=== PATIENT | female | born 1935 | race Caucasian/White ===

== ENCOUNTER 2017-07-31 06:12 | Emergency (ER) | payer MEDICARE ==
[~2017-07-31] VITALS: Ht 152.4 cm; Wt 52.0 kg
[~2017-07-31 06:12] MED LIST: ACTO35TA PO; BP MEDICATION; LORTA5 PO; LOVA10TA PO
[2017-07-31 06:14] VITALS: BP 172/81; PULSE 100; RESP 16; TEMP 99.3; O2SAT 98
[2017-07-31] MEDS ORDERED: METO-309 PO (06:43)
[2017-07-31 06:44] VITALS: BP 152/81; PULSE 89; RESP 18; O2SAT 97
[2017-07-31] MEDS ORDERED: ACETAMINOPHEN 325 MG TAB PO ONE (07:15)
--- NOTE | 2017-07-31 07:24 | PD ---
HPI Chief Complaint: Chest Pain Time Seen by Provider: 07:00 Travel History International Travel<30 days: Yes Contact w/Intl Traveler<30days: Yes Name of Country Traveled to: [place] Traveled to known affect area: No History of Present Illness HPI Patient is a 81-year-old female who presents to emergency room from senior care for evaluation of chest wall pain. Patient reports that she was walking around the senior care in a lau and her flip-flops, reports that she tripped twice in her flip-flops and fell onto her chest wall. Reports that she thinks that she there was possibly water on the floor. Reports that she has never had an issue with tripping in the past when she has her normal shoes on. Patient reports that when she fell, she landed onto her nose as well as her chest wall. Patient reports that her bra which has a wire in it, dug into her chest, reports that this is where her pain is. Denies chest pain, reports rib pain under her bilateral chest. Denies shortness of breath. Reports that she is currently is not on any anticoagulants at this time. Reports only history of hypertension. Denies headache or dizziness, no other complaints. PFSH Past Medical History Cancer: No Cardiovascular Problems: Yes (HTN) High Cholesterol: Yes Diabetes: No Diminished Hearing: No Endocrine: No Genitourinary: No Hepatitis: No Hiatal Hernia: No Hypertension: Yes Immune Disorder: No Musculoskeletal: No Neurologic: No Psychiatric: No Reproductive: No Respiratory: No Immunizations Current: Yes Thyroid Disease: No Tetanus Vaccination: Unknown Past Surgical History Abdominal Surgery: No AICD: No Cardiac Surgery: No Section: Yes Ear Surgery: No Endocrine Surgery: No Eye Surgery: No Genitourinary Surgery: No Gynecologic Surgery: Yes Hysterectomy: Yes Joint Replacement: No Oral Surgery: No Pacemaker: No Thoracic Surgery: No Tonsillectomy: Yes Other Surgery: Yes Social History Alcohol Use: Yes (OCCASIONAL) Tobacco Use: No Substance Use: No Allergies-Medications (Allergen,Severity, Reaction): Coded Allergies: No Known Allergies (Verified , 07/31/17) Reported Meds & Prescriptions Reported Meds & Active Scripts Active Reported Lopressor (Metoprolol Tartrate) 50 Mg Tab 0 PO DAILY Review of Systems General / Constitutional: No: Fever Eyes: No: Visual changes HENT: No: Headaches Cardiovascular: Positive: Other (chest wall pain), No: Chest Pain or Discomfort Respiratory: No: Shortness of Breath Gastrointestinal: No: Abdominal Pain Genitourinary: No: Dysuria Musculoskeletal: No: Pain Skin: No Rash Neurologic: No: Weakness Psychiatric: No: Depression Endocrine: No: Polydipsia Hematologic/Lymphatic: No: Easy Bruising Physical Exam Narrative GENERAL: NAD, nontoxic SKIN: Focused skin assessment warm/dry. HEAD: Atraumatic. Normocephalic. EYES: Pupils equal and round. No scleral icterus. No injection or drainage. ENT: No nasal bleeding or discharge. Mucous membranes pink and moist. NECK: Trachea midline. No JVD. CARDIOVASCULAR: Regular rate and rhythm. No murmur appreciated. No bruises or abrasions to chest wall, patient with point tenderness to her ribs bilaterally and her her breasts RESPIRATORY: No accessory muscle use. Clear to auscultation. Breath sounds equal bilaterally. GASTROINTESTINAL: Abdomen soft, non-tender, nondistended. Hepatic and splenic margins not palpable. MUSCULOSKELETAL: No obvious deformities. No clubbing. No cyanosis. Patient with mild edema to left knee, bruising, normal range of motion, no pain with range of motion of knee, pulses intact, neurovascular intact. NEUROLOGICAL: Awake and alert. No obvious cranial nerve deficits. Motor grossly within normal limits. Normal speech. PSYCHIATRIC: Appropriate mood and affect; insight and judgment normal. Data Data Last Documented VS Vital Signs Date Time Temp Pulse Resp B/P (MAP) Pulse Ox O2 Delivery O2 Flow Rate FiO2 07/31/17 07:26 74 18 148/62 (90) 96 Room Air 07/31/17 06:[address] Brain W/O Iv Contrast(Rout) (07/31/17 07:11) Ct Thorax/ Chest Wo Iv Contras (07/31/17 ) Acetaminophen (Tylenol) (07/31/17 07:15) Electrocardiogram (07/31/17 ) MDM Medical Decision Making Medical Screen Exam Complete: Yes Emergency Medical Condition: Yes Interpretation(s) EKG at 0723: NSR at 83bpm, qt/qtc: 407/447, LBBB, patient with previous LBBB Vital Signs Date Time Temp Pulse Resp B/P (MAP) Pulse Ox O2 Delivery O2 Flow Rate FiO2 07/31/17 06:44 89 18 152/81 (104) 97 Room Air 07/31/17 06:37 97 Room Air 07/31/17 06:14 99.3 100 16 172/81 (111) 98 Room Air Differential Diagnosis Differential includes intracranial hemorrhage, concussion, nasal bone fracture, rib fracture, pneumothorax Narrative Course Patient is an 81-year-old female (alert and oriented x 3) who presents to emergency room after she tripped and fell in her flip-flops last night. Denies loc, denies headache, denies any nausea or vomiting. Patient complains of rib pain on her chest bilaterally. Patient with normal neurological exam, physical exam with only abrasions and swelling to her left knee with normal range of motion and no signs of fracture. Patient was also chest wall tenderness under her breasts bilaterally, went to obtain CT of her head and chest wall. Plan to give Tylenol for pain as patient does not want any other medications at this time Last Impressions Head CT 07/31/17 0711 Signed Impressions: Service Date/Time: , July 31, 2017 08:07 - CONCLUSION: 1. No acute intracranial abnormality. 2. Chronic small vessel ischemic change. Benito Mckeon Jr., MD Chest CT 07/31/17 0000 Signed Impressions: Service Date/Time: , July 31, 2017 08:09 - CONCLUSION: 1. The sternum and ribs are intact with no evidence of fracture. There is a mild scoliosis. 2. The lungs are clear bilaterally with no pneumothorax. Chip Faust MD Patient reevaluated, patient feeling better at this time. There is no intracranial hemorrhage, the sternum and ribs are intact with no fractures, no pneumothorax. Patient was given a copy of her CT report, as she will need to follow up with all incidental findings as discussed. She will return to emergency room as needed. Patient ambulating in the emergency room with normal gait. Diagnosis Primary Impression: Contusion of ribs Qualified Codes: S20.219A - Contusion of unspecified front wall of thorax, initial encounter Additional Impression: Head injury Qualified Codes: S09.90XA - Unspecified injury of head, initial encounter Patient Instructions: General Instructions Additional Instructions: Please follow up with your primary care doctor Please bring a copy of your studies to your doctor's office for follow up Return to ER if symptoms worsen or progress, return to ER as needed Please take Tylenol or Motrin for pain Disposition: 01 DISCHARGE HOME Condition: Stable Saha,Sridevi L DO Jul 31, 2017 07:24
[2017-07-31 07:26] VITALS: BP 148/62; PULSE 74; RESP 18; O2SAT 96
--- NOTE | 2017-07-31 08:28 | RADRPT ---
EXAM DATE/TIME: 07/31/2017 08:07 [facility] COMPARISON: No previous studies available for comparison. INDICATIONS : Trauma, fall. RADIATION DOSE: 50.38 CTDIvol (mGy) MEDICAL HISTORY : Cardiovascular disease. Hypertension. SURGICAL HISTORY : None. ENCOUNTER: Initial ACUITY: 1 day PAIN SCALE: 0/10 LOCATION: cranial TECHNIQUE: Multiple contiguous axial images were obtained of the head. Using automated exposure control and adj ustment of the mA and/or kV according to patient size, radiation dose was kept as low as reasonably a chievable to obtain optimal diagnostic quality images. DICOM format image data is available electro nically for review and comparison. FINDINGS: CEREBRUM: Periventricular low attenuation change involving both cerebral hemispheres. The ventricles are normal for age. No evidence of midline shift, mass lesion, hemorrhage or acute infarction. No extra-axial fluid collections are seen. POSTERIOR FOSSA: The cerebellum and brainstem are intact. The 4th ventricle is midline. The cerebellopontine angle i s unremarkable. EXTRACRANIAL: The visualized portion of the orbits is intact. SKULL: The calvaria is intact. No evidence of skull fracture. CONCLUSION: 1. No acute intracranial abnormality. 2. Chronic small vessel ischemic change. Benito Mckeon Jr., MD on July 31, 2017 at 8:26 Board Certified Radiologist. This report was verified electronically.
--- NOTE | 2017-07-31 09:13 | RADRPT ---
EXAM DATE/TIME: 07/31/2017 08:09 [facility] COMPARISON: No previous studies available for comparison. INDICATIONS : Trauma, fall. Mid sternal pain. RADIATION DOSE: 3.33 CTDIvol (mGy) MEDICAL HISTORY : Cardiovascular disease. Hypertension. SURGICAL HISTORY : section. Hysterectomy. ENCOUNTER: Initial ACUITY: 1 day PAIN SCALE: 7/10 LOCATION: Bilateral chest TECHNIQUE: Volumetric scanning of the chest was performed. Using automated exposure control and adjustment of t he mA and/or kV according to patient size, radiation dose was kept as low as reasonably achievable to obtain optimal diagnostic quality images. DICOM format image data is available electronically for r eview and comparison. Follow-up recommendations for detected pulmonary nodules are based at a minimum on nodule size and pa tient risk factors according to Fleischner Society Guidelines. FINDINGS: LUNGS: There is no consolidation or pneumothorax. No concerning pulmonary nodule is visualized. There is at electasis in the left lower lobe. PLEURAE: There is no pleural thickening or pleural effusion. MEDIASTINUM: The heart and great vessels demonstrate no acute abnormality. There is no mediastinal or hilar lymph adenopathy. Minimal coronary artery calcifications are noted. The heart size is mildly prominent. AXILLAE: Within normal limits. No lymphadenopathy. MUSCULOSKELETAL: Within normal limits for patient age. The sternum and ribs are intact. There is a mild scoliosis. MISCELLANEOUS: The visualized upper abdominal organs demonstrate no acute abnormality. CONCLUSION: 1. The sternum and ribs are intact with no evidence of fracture. There is a mild scoliosis. 2. The lungs are clear bilaterally with no pneumothorax. Chip Faust MD on July 31, 2017 at 9:09 Board Certified Radiologist. This report was verified electronically.
--- NOTE | 2017-07-31 17:54 | EKG ---
Date Performed: 07/31/2017 Time Performed: 07:23:34 PTAGE: 81 years EKG: Sinus rhythm LEFT BUNDLE BRANCH BLOCK ABNORMAL ECG Compared to prior tracing no significant change PREVIOUS TRACING : 08/25/2013 12.14.18 DOCTOR: Juan Zamorano Interpretating Date/Time 07/31/2017 17:52:56
== END 2017-07-31 10:12 | disposition home or self-care (01) ==
LOC: NEPC 06:12
DX: S20.219A Contusion of unspecified front wall of thorax, initial encounter (principal); S09.90XA Unspecified injury of head, initial encounter; M41.9 Scoliosis, unspecified; I44.7 Left bundle-branch block, unspecified; I10 Essential (primary) hypertension; E78.00 Pure hypercholesterolemia, unspecified; W01.0XXA Fall on same level from slipping, tripping and stumbling without subsequent striking against object, initial encounter; Y92.129 Unspecified place in nursing home as the place of occurrence of the external cause; Z79.899 Other long term (current) drug therapy
CPT/HCPCS: 70450; 71250; 93005